=== PATIENT | male | born 1945 | race Caucasian/White ===

== ENCOUNTER 2017-04-22 10:11 | Emergency (ER) | payer OTHER, MEDICARE ==
[~2017-04-22] VITALS: Ht 177.8 cm; Wt 80.7 kg
[~2017-04-22 10:11] MED LIST: ASPIR-LOW81 MG PO; ATENOLOL50 MG PO; FLOMAX0.4 MG PO
[2017-04-22 12:10] LABS: ADD MIUA? NO; BILIRUBIN NEGATIVE; BLOOD NEGATIVE; COLOR YELLOW ((YELLOW)); GLUCOSE (STRIP) NEGATIVE; KETONES NEGATIVE; LEUKOCYTES NEGATIVE; NITRITE NEGATIVE; PROTEIN (STRIP) NEGATIVE; SPECIFIC GRAVITY 1.016 (1.000-1.030); UCUL ADDED? NO; UROBILINOGEN 0.2 MG/DL (0.2-1.0)
[2017-04-22 12:14] LABS: HEMATOCRIT 49.3 % (38.0-50.0); MCH 31.2 PG (29.0-34.0); MCHC 34.5 G/DL (30.0-36.0); MCV 90.5 FL (86-99); MEAN PLAT.VOLUME 9.4 uM^3 (9.0-12.4); PLATELET COUNT 173 K/uL (156-360); RBC DIS.WIDTH-CV 12.6 % (11.8-14.6); RBC DIS.WIDTH-SD 41.9 % (39-53); RED BLOOD COUNT 5.45 M/uL (4.00-5.50); WHITE BLOOD COUNT 8.7 K/uL (4.1-10.2)
[2017-04-22 12:25] LABS: CHLORIDE 106 mEq/L (99-109); POTASSIUM 4.3 mEq/L (3.7-5.4); SODIUM 138 mEq/L (136-147)
[2017-04-22 12:27] LABS: GLUCOSE 80 mg/dL (70-99)
[2017-04-22 12:28] LABS: ANION GAP 8 MEQ/L (2-14)
[2017-04-22 12:31] LABS: GFR ESTIMATE (CALCULATED) > 59 mL/min/ (58.99-99999); UREA NITROGEN (BUN) 19 mg/dL (9-23)
[2017-04-22 14:40] VITALS: BP 125/75
== END 2017-04-22 14:41 | disposition home or self-care (01) ==
LOC: EME 10:11
PROVIDERS: Emergency Medicine
DX: N20.0 Calculus of kidney (principal); N50.812 Left testicular pain; N50.811 Right testicular pain; Z85.46 Personal history of malignant neoplasm of prostate; Z87.442 Personal history of urinary calculi; I10 Essential (primary) hypertension; Z92.3 Personal history of irradiation; Z79.82 Long term (current) use of aspirin
CPT/HCPCS: 74176; 76870; 80048; 81003; 85027; 87086; 99281; 99284